=== PATIENT | male | born 1955 | race Caucasian/White ===

== ENCOUNTER 2018-05-15 17:27 | Emergency (ER) | payer OTHER, MEDICARE ==
[~2018-05-15] VITALS: Ht 185.4 cm; Wt 102.3 kg
[2018-05-15] MEDS ORDERED: dexamethasone sod phosphate 10mg/ml inj IV STA (17:36)
[2018-05-15] MEDS ORDERED: albuterol 2.5 mg/0.5ml nebule NEB STA (17:36)
[2018-05-15] MEDS ORDERED: ipratropium 0.5 MG/2.5ML nebule ONE (17:38)
[2018-05-15] MEDS ORDERED: ipratropium 0.5 MG/2.5ML nebule IH ONE (17:40)
[2018-05-15] MEDS ORDERED: ketorolac trometh. 30mg/ml inj. IV ONE (17:40)
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
[2018-05-15] MEDS ORDERED: albuterol 2.5 MG/3 ML nebule NEB STA ×2 (17:49→17:56)
[2018-05-15] MEDS ORDERED: fentaNYL/PF 50MCG/1 ML 2ML syringe IV ONE (17:55)
[2018-05-15] MEDS ORDERED: fentaNYL/PF 50MCG/1 ML 2ML syringe ONE (17:57)
[2018-05-15 18:10] LABS: BASOPHILS # (AUTO) 0.1 X10'3 (0-0.2); EOSINOPHILS # (AUTO) 0.3 X10'3 (0-0.9); EOSINOPHILS % (AUTO) 3.1 % (0-6); HEMATOCRIT 39.7 % (42.0-52.0); LYMPHOCYTES # (AUTO) 4.1 X10'3 (1.1-4.8); MEAN CORPUSCULAR HEMOGLOBIN 30.5 PG (27.0-31.0); MEAN CORPUSCULAR HGB CONC 32.9 g/dL (33.0-36.5); MEAN CORPUSCULAR VOLUME 92.9 FL (78-98); MEAN PLATELET VOLUME 7.4 FL (7.4-10.4); MONOCYTES # (AUTO) 0.6 X10'3 (0-0.9); MONOCYTES % (AUTO) 5.6 % (2-12); NEUTROPHILS # (AUTO) 5.4 X10'3 (1.8-7.7); NEUTROPHILS % (AUTO) 51.3 % (42-75); PLATELET COUNT 225 X10'3 (140-440); RED BLOOD COUNT 4.27 X10'6 (4.70-6.10); WHITE BLOOD COUNT 10.5 X10'3 (4.5-11.0)
[2018-05-15] MEDS ORDERED: normal saline 1000ml 1,000 ML IV ONE (18:10)
[2018-05-15] MEDS ORDERED: ringers solution, lacted 1,000 ML IV ONE (18:10)
[2018-05-15 18:20] LABS: INR 0.9 INR; PROTHROMBIN TIME 9.6 SECONDS (9.0-12.0)
[2018-05-15 18:22] LABS: ALBUMIN 3.4 G/DL (3.4-5.0); ANION GAP 6 (8-16); BILIRUBIN,TOTAL 0.2 MG/DL (0.1-1.0); BLOOD UREA NITROGEN 8 MG/DL (7-18); BUN/CREATININE RATIO 10.4 (5.4-32.0); CHLORIDE 101 MMOL/L (99-107); CREATININE 0.77 MG/DL (0.60-1.10); GLUCOSE 111 MG/DL (70-104); POTASSIUM 3.6 MMOL/L (3.5-5.1); SODIUM 140 MMOL/L (135-145); TOTAL CARBON DIOXIDE 33.1 MMOL/L (24-32); TOTAL PROTEIN 6.7 G/DL (6.4-8.2); eGFR > 90 ML/MIN
--- NOTE | 2018-05-15 18:22 | NUR ---
SPOKE WITH SYLVAIN CHRISTENSEN AT TRANSFER CENTER. PATIENT MAY BE TRANSFERED TO [facility] ACCEPTING =GINGER. [facility] ER TO CALL REPORT THE CHART AND ALL IMAGES WILL GO WITH PATIENT
[2018-05-15 18:23] LABS: ALANINE AMINOTRANSFERASE 25 U/L (12-78); ALKALINE PHOSPHATASE 111 IU/L (46-116); ASPARTATE AMINO TRANSFERASE 14 U/L (10-37)
--- NOTE | 2018-05-15 18:28 | NUR ---
VANESSA [phone] SPOKE WITH AND UPDATED VIA PHONE
[2018-05-15 18:29] LABS: MAGNESIUM 1.7 MG/DL (1.5-2.4)
--- NOTE | 2018-05-15 18:45 | NUR ---
REPORT TO FELICIANO CHRISTENSEN [facility] AT [phone]
[2018-05-15 19:00] VITALS: BP 125/78
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
== END 2018-05-15 19:10 | disposition short-term general hospital (02) ==
LOC: ER 17:29
DX: T20.20XA Burn of second degree of head, face, and neck, unspecified site, initial encounter (principal); T20.22XA Burn of second degree of lip(s), initial encounter; J44.9 Chronic obstructive pulmonary disease, unspecified; F17.210 Nicotine dependence, cigarettes, uncomplicated; X08.8XXA Exposure to other specified smoke, fire and flames, initial encounter; Y93.89 Activity, other specified; Y92.89 Other specified places as the place of occurrence of the external cause; Y99.9 Unspecified external cause status
CPT/HCPCS: 36415; 71045; 80053; 83735; 83880; 84484; 85025; 85610; 93005; 94640; 94760; 96374; 96375; 96376; 99285; J1100; J1885; J3010; J7030; J7120; J7611